=== PATIENT | female | born 1970 | race Caucasian/White ===

== ENCOUNTER 2016-10-25 12:27 | Emergency (ER) | payer OTHER ==
--- NOTE | 2016-10-25 14:03 | DIAGNOSTIC IMAGING REPORT ---
PROCEDURE: XR CHEST 1 VIEW INDICATION: CHEST PAIN TECHNIQUE: Portable AP view (1310 hours). COMPARISON: None. FINDINGS: Allowing for overlying wires and electrodes, lungs are clear. Heart and mediastinum are normal. There are bilateral cervical ribs remnants. There is a pseudoarthrosis of the left first rib (incidental finding). Thorax is normal. IMPRESSION: 1. 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 2. Otherwise negative chest.
--- NOTE | 2016-10-25 14:19 | DIAGNOSTIC IMAGING REPORT ---
PROCEDURE: XR CHEST 1 VIEW INDICATION: Assess nipple shadows. TECHNIQUE: Portable AP view with metal nipple markers (1410 hours). COMPARISON: Compared to chest x-ray earlier in the day (10/25/2016 (1-1 hours). FINDINGS: Confirmation of bilateral nipple shadows. No evidence of lung nodule. Heart and mediastinum are normal. Thorax is normal. IMPRESSION: 1. Confirmation of bilateral nipple shadows. 2. Negative chest.
--- NOTE | 2016-10-25 14:21 | ED ORDER SUMMARY ---
..... Patient: JHON FRAZIER OrderSheet [facility] VisitID: [id number] [address] [place] [address] 45y, F Registration Date/Time: 10/25/2016 ORDER SHEET Weight: 63.5 kg (stated) Allergies: Sulfa Antibiotics GENERAL ORDERS: Chest 1V Urgent (12:49 10/25/2016 Bg SEPULVEDA) (Ack 12:56 Tomasa) (13:21 DDean R.N.) Seam Stay Stitcher (Continuous) (12:49 10/25/2016 Bg SEPULVEDA) (12:50 DDean R.N.) CBC w Diff Urgent (12:49 10/25/2016 Bg SEPULVEDA) (Ack 12:56 Tomasa) (13:21 DDean R.N.) CMP Urgent (12:49 10/25/2016 Bg SEPULVEDA) (Ack 12:56 Tomasa) (13:21 DDean R.N.) UA-Culture if indicated Urgent (12:49 10/25/2016 Bg SEPULVEDA) (Ack 12:56 Tomasa) (13:37 DDean R.N.) PT with INR Urgent (12:49 10/25/2016 Bg SEPULVEDA) (Ack 12:56 Tomasa) (13:21 DDean R.N.) PTT Urgent (12:49 10/25/2016 Bg SEPULVEDA) (Ack 12:56 Tomasa) (13:21 DDean R.N.) Amylase Urgent (12:49 10/25/2016 Bg SEPULVEDA) (Ack 12:56 Tomasa) (13:21 DDean R.N.) Lipase Urgent (12:49 10/25/2016 Bg SEPULVEDA) (Ack 12:56 Tomasa) (13:21 DDean R.N.) CPK Urgent (12:49 10/25/2016 Bg SEPULVEDA) (Ack 12:56 Tomasa) (13:21 DDean R.N.) Troponin-I Urgent (12:49 10/25/2016 Bg SEPULVEDA) (Ack 12:56 Tomasa) (13:21 DDean R.N.) D-Dimer Urgent (12:49 10/25/2016 Bg SEPULVEDA) (Ack 12:56 Tomasa) (13:21 DDean R.N.) BNP Urgent (12:49 10/25/2016 Bg SEPULVEDA) (Ack 12:56 Tomasa) (13:21 DDean R.N.) Oxygen (2 L/min) (NC) (12:49 10/25/2016 Bg SEPULVEDA) (12:50 DDean R.N.) Pulse oximeter (12:49 10/25/2016 Bg SEPULVEDA) (12:50 DDean R.N.) EKG - ER Stat (12:49 10/25/2016 Bg SEPULVEDA) (12:57 Tomasa) Vitals - Orthostatic (12:49 10/25/2016 Bg SEPULVEDA) (12:57 RENEAoerace) TSH Urgent (12:50 10/25/2016 Bg SEPULVEDA) (Ack 12:56 Tomasa) (13:21 DDean R.N.) UA-Culture if indicated Urgent (12:50 10/25/2016 Bg SEPULVEDA) (12:50 Bg SEPULVEDA) (Cancelled: Duplicate Order12:51 Bg SEPULVEDA) Urine Urgent (12:50 10/25/2016 Bg SEPULVEDA) (Ack 12:56 Tomasa) (13:37 DDean R.N.) Urine Drug Screen Urgent (13:24 10/25/2016 Bg SEPULVEDA) (Ack 13:25 Tomasa) (13:37 DDean R.N.) Chest 1V (with nipple markers please) Urgent (13:53 10/25/2016 Bg SEPULVEDA) (Ack 13:56 Tomasa) (14:11 RENEAoemelisa) MEDICATION ORDERS: IV FLUIDS: IV Saline Lock (12:49 10/25/2016 Bg SEPULVEDA) (Ack 12:51 DDean R.N.) (13:38 DDean R.N.) ORDER SHEET NOTES: [Electronically signed by Andrew Vargas MD (14:47 10/25/2016)] [Electronically signed by Denia Hannah R.N. (22:18 10/25/2016)] [Electronically locked/signed by Denia Hannah R.N. (:18 10/25/2016)]
--- NOTE | 2016-10-25 14:21 | ED ORDER SUMMARY ---
..... Patient: JHON FRAZIER OrderSheet [facility] VisitID: [id number] [address] [place] [address] 45y, F Registration Date/Time: 10/25/2016 ORDER SHEET Weight: 63.5 kg (stated) Allergies: Sulfa Antibiotics GENERAL ORDERS: Chest 1V Urgent (12:49 10/25/2016 Bg SEPULVEDA) (Ack 12:56 Tomasa) (13:21 DDean R.N.) Fixed Assets Accountant (Continuous) (12:49 10/25/2016 Bg SEPULVEDA) (12:50 DDean R.N.) CBC w Diff Urgent (12:49 10/25/2016 Bg SEPULVEDA) (Ack 12:56 Tomasa) (13:21 DDean R.N.) CMP Urgent (12:49 10/25/2016 Bg SEPULVEDA) (Ack 12:56 Tomasa) (13:21 DDean R.N.) UA-Culture if indicated Urgent (12:49 10/25/2016 Bg SEPULVEDA) (Ack 12:56 Tomasa) (13:37 DDean R.N.) PT with INR Urgent (12:49 10/25/2016 Bg SEPULVEDA) (Ack 12:56 Tomasa) (13:21 DDean R.N.) PTT Urgent (12:49 10/25/2016 Bg SEPULVEDA) (Ack 12:56 Tomasa) (13:21 DDean R.N.) Amylase Urgent (12:49 10/25/2016 Bg SEPULVEDA) (Ack 12:56 Tomasa) (13:21 DDean R.N.) Lipase Urgent (12:49 10/25/2016 Bg SEPULVEDA) (Ack 12:56 Tomasa) (13:21 DDean R.N.) CPK Urgent (12:49 10/25/2016 Bg SEPULVEDA) (Ack 12:56 Tomasa) (13:21 DDean R.N.) Troponin-I Urgent (12:49 10/25/2016 Bg SEPULVEDA) (Ack 12:56 Tomasa) (13:21 DDean R.N.) D-Dimer Urgent (12:49 10/25/2016 Bg SEPULVEDA) (Ack 12:56 Tomasa) (13:21 DDean R.N.) BNP Urgent (12:49 10/25/2016 Bg SEPULVEDA) (Ack 12:56 Tomasa) (13:21 DDean R.N.) Oxygen (2 L/min) (NC) (12:49 10/25/2016 Bg SEPULVEDA) (12:50 DDean R.N.) Pulse oximeter (12:49 10/25/2016 Bg SEPULVEDA) (12:50 DDean R.N.) EKG - ER Stat (12:49 10/25/2016 Bg SEPULVEDA) (12:57 Tomasa) Vitals - Orthostatic (12:49 10/25/2016 Bg SEPULVEDA) (12:57 RENEAoerace) TSH Urgent (12:50 10/25/2016 Bg SEPULVEDA) (Ack 12:56 Tomasa) (13:21 DDean R.N.) UA-Culture if indicated Urgent (12:50 10/25/2016 Bg SEPULVEDA) (12:50 Bg SEPULVEDA) (Cancelled: Duplicate Order12:51 Bg SEPULVEDA) Urine Urgent (12:50 10/25/2016 Bg SEPULVEDA) (Ack 12:56 Tomasa) (13:37 DDean R.N.) Urine Drug Screen Urgent (13:24 10/25/2016 Bg SEPULVEDA) (Ack 13:25 Tomasa) (13:37 DDean R.N.) Chest 1V (with nipple markers please) Urgent (13:53 10/25/2016 Bg SEPULVEDA) (Ack 13:56 Tomasa) (14:11 RENEAoemelisa) MEDICATION ORDERS: IV FLUIDS: IV Saline Lock (12:49 10/25/2016 Bg SEPULVEDA) (Ack 12:51 DDean R.N.) (13:38 DDean R.N.) ORDER SHEET NOTES: [Electronically signed by Andrew Vargas MD (14:47 10/25/2016)] [Electronically signed by Denia Hannah R.N. (22:18 10/25/2016)] [Electronically locked/signed by Denia Hannah R.N. (:18 10/25/2016)]
--- NOTE | 2016-10-25 14:21 | ED CLINICAL REPORT ---
Clinical Report - Physicians/Mid Levels [facility] [address] [place] [address] 10/25/2016 12:29 Patient: JHON FRAZIER Time Seen: 12:48. Arrived- In handcuffs. Police present. [facility] from [facility]. Historian- patient and police. HISTORY OF PRESENT ILLNESS Chief Complaint: SYNCOPE. The patient has recovered. It was abrupt in onset. This occurred today. Event was not witnessed. At time of event, she had just stood up (she says that she had urinated and had stood to wash her hands). The patient lost consciousness and collapsed. No incontinence. No preceding symptoms of light-headedness, nausea, dim vision, warmth or abdominal pain. Had a single episode. The episode was brief and lasted an unknown duration. No injuries noted. She currently has generalized weakness. No nausea currently. No headache currently. Similar symptoms previously: ( The patient was seen on August 24 of this year at [facility]. She was seen for very similar symptoms. She had had an event of chest pain. [facility] had [facility] and while there had chest pain and was taken to the other hospital. She was released from [facility] status while there to pursue further workup. She has not been in [facility] during the interim. She was arrested yesterday for outstanding warrants. and the officer accompanying her says that she had been in a bathroom for several minutes. When someone went to check on her they found her lying on the floor. They did not hurt any sounds consistent with a fall. They report that the room was too small and not to have struck something when falling. Additionally, they report she was lying on the floor clothed and was alert when they entered the room.). Recent medical care: The patient was seen recently at another facility in the emergency department. REVIEW OF SYSTEMS No chills, fever, sweats, calf pain or cough. No difficulty breathing, pedal edema, palpitations, abdominal pain or constipation. No diarrhea, nausea, vomiting or urinary problems. The patient complains of severe left-sided chest pain (since yesterday), currently moderate, described as radiating to the left arm. She says that she has had a nuclear stress test in the past. All systems otherwise negative, except as recorded above. PAST HISTORY Problems: Heart Disease. Fibromyalgia. Additional Surgeries: Knee Surgery. Medications: Asa 81mg po daily. Allergies: Sulfa Antibiotics. SOCIAL HISTORY Current every day heavy tobacco smoker (cigarette)- less than 1 pack per day. Occasional alcohol use. History of drug use: marijuana. FAMILY HISTORY Denies family medical history. ADDITIONAL NOTES The nursing notes have been reviewed. PHYSICAL EXAM Vital Signs: 10/25/2016 12:35 BP: 116/77. HR: 86. RR: 18. O2 saturation: 100%. Temp: 98.9 F. Pain level now: 12/19. Have been reviewed. Appearance: Alert. Eyes: Pupils equal, round and reactive to light. No nystagmus. ENT: Normal ENT inspection. Pharynx normal. Neck: Normal inspection. Neck supple. No meningeal signs or carotid bruit. CVS: Normal heart rate and rhythm. Heart sounds normal. Respiratory: Breath sounds normal. Abdomen: Soft and nontender. No organomegaly. Back: Abnormal inspection. Skin: Skin warm and dry. Normal skin color. Normal skin turgor. Extremities: Extremities exhibit normal ROM. No calf tenderness. No lower extremity edema. Neuro: Alert. Speech normal. No cerebellar findings. No motor deficit. No sensory deficit. LABS, X-RAYS, AND EKG EKG: Rate: 81. LBBB. EKG unchanged when compared with prior EKG. (24 Aug 2016 from [place]). The study has been independently viewed by me. Chest X-ray: (right basilar nodular lesion and left lingular nodular lesion - likely nipples. We'll repeat study with markers). The X-rays were independently viewed by me. Chest X-ray #2: (Nodular densities previously noted different position and correspond to placed nipple markers). The X-rays were independently viewed by me. Laboratory Tests: Urine: (ROCCO: 10/25/2016 13:25) ( MsgRcvd 10/25/2016 13:45) Final results Test Result Flag Units (Reference) URINE NEGATIVE CBC w Diff: (ROCCO: 10/25/2016 12:15) ( MsgRcvd 10/25/2016 13:13) Final results Test Result Flag Units (Reference) WHITE BLOOD COUNT 6.6 K/uL (4.5-11.5) RED BLOOD COUNT 4.45 M/uL (4.00-5.20) HEMOGLOBIN 13.7 gm/dL (12.0-16.0) HEMATOCRIT 40.8 % (36.0-46.0) MEAN CELL VOLUME 92 fL (80-100) MEAN CORPUSCULAR HGB 31 pg (26-34) MEAN CORPUSCULAR HGB CONC 34 g/dL (31-37) RED CELL DISTRIBUTION WIDTH 12.5 % (11.6-14.8) PLATELET COUNT 289 K/uL (150-400) NEUTROPHIL % 62.3 % (50-75) LYMPH % 26.7 % (25-40) MONO % 7.7 % (3-14) EOSINOPHIL % 3.0 % (0-4) BASOPHIL % 0.3 % (0-2) PT with INR: (ROCCO: 10/25/2016 12:15) ( MsgRcvd 10/25/2016 13:25) Final results Test Result Flag Units (Reference) INR 0.9 (0.8-1.2) Low Intensity Therapy: INR 1.5-2.0 PT range 18.5-23.1Mod.Intensity Therapy: INR 2.0-3.0 PT range 23.1-31.5High Intensity Therapy: INR 2.5-3.5 PT range 27.4-35.5High Intensity Therapy 2: INR 3.0-4.0 PT range 31.5-39.3 APTT 28 SECONDS (24-34) D-DIMER QUANTITATIVE < 0.27 L ug/mLFEU (0.27-0.52) The primary value of this quantitative assay relates toits negative predictive value (i.e. exclusion) of pulmonaryembolism/deep vein thrombosis/DIC.Elevated levels of d-dimer may also occur with:, age, cancer, inflammation, liver disease,post-op, infection, hematoma, coronary disease, peripheralarteriopathy, bleeding disorders and thrombolytic treatment.Results should be correlated with other clinical andradiological data.Testing Methodology: Latex Immunoassay Urine Drug Screen: (ROCCO: 10/25/2016 13:25) ( [facility] 10/25/2016 14:04) Final results Test Result Flag Units (Reference) AMPHETAMINE/METHAMPHETAMINE POSITIVE H (NEGATIVE) BARBITURATE NEGATIVE (NEGATIVE) BENZODIAZEPINE NEGATIVE (NEGATIVE) CANNABINOID POSITIVE H (NEGATIVE) COCAINE NEGATIVE (NEGATIVE) ECSTASY NEGATIVE (NEGATIVE) METHADONE NEGATIVE (NEGATIVE) OPIATE NEGATIVE (NEGATIVE) The urine drug screen is a qualitative screening test fordrug overdose and abuse. All screen results should beconsidered as presumptive.Drugs screened for are as follows:BenzodiazepinesCocaineAmphetamines/MetamphetaminesTHC (Tetrahydrocannabinol)OpiatesBarbituratesEcstasyMethadonePositive results are unconfirmed. For confirmation, notifythe lab for the specimen to be sent to the reference lab.All confirmations must be performed by a differentmethodology.The ingestion of natural herbal and plant productscontaining Ephedra/Ephedra metabolites can produce in urineone or more substances capable of cross reacting withamphetamine/methamphetamine immunoassays. These testsprovide a preliminary result only. A more specificalternative chemical method must be used to obtain aconfirmed analytical result. BNP: (ROCCO: 10/25/2016 12:15) ( [facility] 10/25[facility] 13[facility]36) Final results Test Result Flag Units (Reference) B-TYPE NATRIURETIC PEPTIDE 21.3 pg/ml (5-100) CMP: (ROCCO: 10/25/2016 12:15) ( [facility] 10/25/2016 13:35) Final results Test Result Flag Units (Reference) GLUCOSE 113 H mg/dL (70-110) BUN 19 H mg/dL (7-18) CREATININE 0.9 mg/dL (0.6-1.3) Estimated GFR >60 mL/min Estimated GFR- >60 mL/min Note: Persistent reduction over 3 months in eGFR<60 mL/min/1.73 m2 defines CKD. Patients with eGFR values>=60 mL/min/1.73 m2 may also have CKD if evidence ofpersistent proteinuria. Additional information may be foundat www.kidney.org. SODIUM 144 mmol/L (136-145) POTASSIUM 4.2 mmol/L (3.5-5.1) CHLORIDE 106 mmol/L (98-107) CARBON DIOXIDE 29 mmol/L (21-32) CALCIUM 8.8 mg/dL (8.5-10.1) TOTAL PROTEIN 7.2 g/dL (6.4-8.2) ALBUMIN 3.5 g/dL (3.3-5.0) BILIRUBIN, TOTAL 0.4 mg/dL (0.0-1.0) ALKALINE PHOSPHATASE 59 U/L (46-116) AST (SGOT) 19 U/L (15-37) ALT (SGPT) 31 U/L (12-78) LIPASE 426 H U/L (73-393) AMYLASE 91 U/L (25-115) CPK 115 U/L (24-260) TROPONIN I <0.05 L ng/mL (0.00-1.5) TROPONIN REFERENCE RANGE:<0.1 NEGATIVE0.1-1.5 INDETERMINANT>1.5 POSITIVE THYROID STIMULATING HORMONE 0.608 uIU/mL (0.34-3.74) . PROGRESS AND PROCEDURES Course of Care: Patient is stable. Patient/family counseled. Old medical records reviewed. Differential Diagnosis: I considered situational stimulus, micturition, cardiac sinus hypersensitivity, arrhythmia, heart block, myocardial infarction, aortic dissection, seizure and hysteria as a possible cause of syncope in this patient. This is a partial list of diagnoses considered. I considered muscle strain, costochondritis, myocardial infarction, angina, pericarditis, palpitations, pulmonary embolism, gastroesophageal reflux disease, esophagitis and esophageal spasm as a possible cause of chest pain in this patient. This is a partial list of diagnoses considered. Other possible considerations: evaluation in the emergency Department today included an EKG which demonstrates an old left bundle-branch block. given her unremarkable follow-up chest x-ray, negative troponin after greater than 6 hours following the onset of her chest pain and a reassuring d-dimer, The patient can be safely discharged back to police custody. Differential diagnosis was discussed with patient. Disposition: [facility]. Condition: stable. CLINICAL IMPRESSION Syncope of unknown cause. Substance abuse- marijuana, methamphetamines. INSTRUCTIONS Rest. Do not smoke- benefits of smoking cessation discussed (>3 -10 minutes). Seek medical help to quit smoking. (seek assistance for help with your substance abuse issues. Please consult the list which you were provided and contact these organizations for further help.). Warnings: Further evaluation is necessary. GENERAL WARNINGS: Return or contact your physician immediately if your condition worsens or changes unexpectedly, if not improving as expected, or if other problems arise. Follow-up: Follow up with your doctor. Call for the next available appointment. Follow up with a roller repairer- as recommended by your primary care physician. Understanding of the discharge instructions verbalized by patient. (Electronically signed by Andrew Vargas MD 10/25/2016 14:47)
--- NOTE | 2016-10-25 14:21 | ED NURSING NOTES ---
Clinical Report - Nurses [facility] [address] [place] [address] 10/25/2016 12:29 Patient: JHON FRAZIER TRIAGE Triage time 1235. Acuity: LEVEL 3. Chief Complaint: CHEST PAIN and (midsternal/let sided chest pain since yesterday morning. brought in by PD from [facility] 12:35. --12:47 Denia Hannah R.N. 12:35 10/25/16. BP: 116/77. HR: 86. RR: 18. O2 saturation: 100%. Temp: 98.9 F. Pain level now: 12/19. --12:47 Denia Hannah R.N. Weight: 63.5 kg stated. Height/Length: 64 inches Per Patient. BMI: 24. --12:45 Denia Hannah R.N. Medications Asa 81mg po daily. --12:45 Denia Hannah R.N. Allergies Sulfa Antibiotics. --12:45 Denia Hannah R.N. History Historian: patient. Arrived in police custody and accompanied by police. No primary care physician. This started yesterday. ( c/o dizziness and "like I just want to sleep"). No difficulty breathing, sweating episodes, nausea or vomiting. PAST MEDICAL HX: ( seasonal allergies hypoglycemia). SURGERY HX: Right and left knee surgery. SOCIAL HX: Heavy tobacco smoker (cigarette)- less than 1 pack per day. Occasional alcohol use. History of drug use: marijuana. --12:47 Denia Hannah R.N. PROBLEMS: Heart Disease. Fibromyalgia. --12:46 Denia Hannah R.N. Interventions ID band on patient. To treatment room. --12:47 Denia Hannah R.N. PHYSICAL ASSESSMENT 12:50. Ambulatory to room. Patient gowned. GENERAL / NEURO / PSYCH: Alert. Oriented X 4. Appears in no acute distress. Appears anxious. RESPIRATORY: Respirations not labored. Chest wall tenderness. CVS: Pulses within normal limits. Capillary refill less than 2 seconds. GI / : Abdomen soft. EXTREMITIES: No lower extremity edema. SKIN: Skin is warm and dry. Skin is non-tender. --12:50 Denia Hannah R.N. NURSING PROGRESS NOTES 12:35. Monitoring of patient in place; (NSR). Patient gowned. Reassurance given. Patient identifiers checked. Call light placed in reach. Side rails up. Bed placed in lowest position. Patient ready for evaluation- chart flagged. --12:48 Denia Hannah R.N. 12:50. EKG time: (1250). EKG was ordered, performed by a tech and shown to the ED physician. by ZULLY Mayorga Tech. --12:49 Denia Hannah R.N. 13:07 10/25/16. BP: 109/67 taken while lying. HR: 76. O2 saturation: 97%. --13:08 Crystal Kim ER Tech1 13:08 10/25/16. BP: 124/72 taken while sitting. HR: 92. O2 saturation: 99%. --13:08 Crystal Kim ER Tech1 13:09 10/25/16. BP: 112/78 taken while standing. HR: 92. O2 saturation: 100%. --13:09 Crystal Kim ER Tech1 13:15. Portable chest x-ray ordered, performed and shown to the ED physician. --13:19 Denia Hannah R.N. 12:50 10/25/2016 Site #1 started via IV in the left antecubital space with an 20g angiocath, with aseptic technique and good blood return; one attempt. Blood drawn: rainbow set. Labeled in the presence of the patient and sent to the lab. Saline lock flushed with 10 mL saline. --13:22 Denia Hannah R.N. 13:30. ( ambulated pt in [place], steady on feet. UA obtained and sent to lab). --13:36 Denia Hannah R.N. 13:40 10/25/16. BP: 118/77. HR: 85. RR: 18. O2 saturation: 98%. Temp: deferred. Pain level now: 12/19. Additional comments: pt laying on bed with eyes closed, deputy juvenile officer in room . --14:12 Denia Hannah R.N. 14:05. Portable chest x-ray ordered, performed and shown to the ED physician (repeat CXR done). --14:13 Denia Hannah R.N. 14:10 10/25/16. BP: 119/72. HR: 77. RR: 15. O2 saturation: 100%. Temp: deferred. Pain level now: 12/19. --14:13 Denia Hannah R.N. DISPOSITION / DISCHARGE 14:20. Condition at departure: stable. No learning barriers present. Discharge instructions provided and reviewed (police). Reviewed referrals (drug and alcohol rehab info given to pt). Patient verbalized understanding. Written instructions provided in [place]. The patient was discharged to police department facility and accompanied by a police escort. She left the Emergency Department ambulatory and via police department vehicle. --22:17 Denia Hannah R.N. 14:20 10/25/16. BP: 116/68. HR: 76. RR: 16. O2 saturation: 99%. Temp: deferred. Pain level now: 12/19. --22:17 Denia Hannah R.N. Locked/Released at 10/25/2016 22:18 by Denia Hannah R.N.
--- NOTE | 2016-10-25 14:21 | ED NURSING NOTES ---
Clinical Report - Nurses [facility] [address] [place] [address] 10/25/2016 12:29 Patient: JHON FRAZIER TRIAGE Triage time 1235. Acuity: LEVEL 3. Chief Complaint: CHEST PAIN and (midsternal/let sided chest pain since yesterday morning. brought in by PD from [facility] 12:35. --12:47 Denia Hannah R.N. 12:35 10/25/16. BP: 116/77. HR: 86. RR: 18. O2 saturation: 100%. Temp: 98.9 F. Pain level now: 12/19. --12:47 Denia Hannah R.N. Weight: 63.5 kg stated. Height/Length: 64 inches Per Patient. BMI: 24. --12:45 Denia Hannah R.N. Medications Asa 81mg po daily. --12:45 Denia Hannah R.N. Allergies Sulfa Antibiotics. --12:45 Denia Hannah R.N. History Historian: patient. Arrived in police custody and accompanied by police. No primary care physician. This started yesterday. ( c/o dizziness and "like I just want to sleep"). No difficulty breathing, sweating episodes, nausea or vomiting. PAST MEDICAL HX: ( seasonal allergies hypoglycemia). SURGERY HX: Right and left knee surgery. SOCIAL HX: Heavy tobacco smoker (cigarette)- less than 1 pack per day. Occasional alcohol use. History of drug use: marijuana. --12:47 Denia Hannah R.N. PROBLEMS: Heart Disease. Fibromyalgia. --12:46 Denia Hannah R.N. Interventions ID band on patient. To treatment room. --12:47 Denia Hannah R.N. PHYSICAL ASSESSMENT 12:50. Ambulatory to room. Patient gowned. GENERAL / NEURO / PSYCH: Alert. Oriented X 4. Appears in no acute distress. Appears anxious. RESPIRATORY: Respirations not labored. Chest wall tenderness. CVS: Pulses within normal limits. Capillary refill less than 2 seconds. GI / : Abdomen soft. EXTREMITIES: No lower extremity edema. SKIN: Skin is warm and dry. Skin is non-tender. --12:50 Denia Hannah R.N. NURSING PROGRESS NOTES 12:35. Monitoring of patient in place; (NSR). Patient gowned. Reassurance given. Patient identifiers checked. Call light placed in reach. Side rails up. Bed placed in lowest position. Patient ready for evaluation- chart flagged. --12:48 Denia Hannah R.N. 12:50. EKG time: (1250). EKG was ordered, performed by a tech and shown to the ED physician. by ZULLY Mayorga Tech. --12:49 Denia Hannah R.N. 13:07 10/25/16. BP: 109/67 taken while lying. HR: 76. O2 saturation: 97%. --13:08 Crystal Kim ER Tech1 13:08 10/25/16. BP: 124/72 taken while sitting. HR: 92. O2 saturation: 99%. --13:08 Crystal Kim ER Tech1 13:09 10/25/16. BP: 112/78 taken while standing. HR: 92. O2 saturation: 100%. --13:09 Crystal Kim ER Tech1 13:15. Portable chest x-ray ordered, performed and shown to the ED physician. --13:19 Denia Hannah R.N. 12:50 10/25/2016 Site #1 started via IV in the left antecubital space with an 20g angiocath, with aseptic technique and good blood return; one attempt. Blood drawn: rainbow set. Labeled in the presence of the patient and sent to the lab. Saline lock flushed with 10 mL saline. --13:22 Denia Hannah R.N. 13:30. ( ambulated pt in [place], steady on feet. UA obtained and sent to lab). --13:36 Denia Hannah R.N. 13:40 10/25/16. BP: 118/77. HR: 85. RR: 18. O2 saturation: 98%. Temp: deferred. Pain level now: 12/19. Additional comments: pt laying on bed with eyes closed, strategic debriefing officer in room . --14:12 Denia Hannah R.N. 14:05. Portable chest x-ray ordered, performed and shown to the ED physician (repeat CXR done). --14:13 Denia Hannah R.N. 14:10 10/25/16. BP: 119/72. HR: 77. RR: 15. O2 saturation: 100%. Temp: deferred. Pain level now: 12/19. --14:13 Denia Hannah R.N. DISPOSITION / DISCHARGE 14:20. Condition at departure: stable. No learning barriers present. Discharge instructions provided and reviewed (police). Reviewed referrals (drug and alcohol rehab info given to pt). Patient verbalized understanding. Written instructions provided in Occitan. The patient was discharged to police department facility and accompanied by a police escort. She left the Emergency Department ambulatory and via police department vehicle. --22:17 Denia Hannah R.N. 14:20 10/25/16. BP: 116/68. HR: 76. RR: 16. O2 saturation: 99%. Temp: deferred. Pain level now: 12/19. --22:17 Denia Hannah R.N. Locked/Released at 10/25/2016 22:18 by Denia Hannah R.N.
--- NOTE | 2016-10-25 14:21 | ED CLINICAL REPORT ---
Clinical Report - Physicians/Mid Levels [facility] [address] [place] [address] 10/25/2016 12:29 Patient: JHON FRAZIER Time Seen: 12:48. Arrived- In handcuffs. Police present. Came from [facility]. Historian- patient and police. HISTORY OF PRESENT ILLNESS Chief Complaint: SYNCOPE. The patient has recovered. It was abrupt in onset. This occurred today. Event was not witnessed. At time of event, she had just stood up (she says that she had urinated and had stood to wash her hands). The patient lost consciousness and collapsed. No incontinence. No preceding symptoms of light-headedness, nausea, dim vision, warmth or abdominal pain. Had a single episode. The episode was brief and lasted an unknown duration. No injuries noted. She currently has generalized weakness. No nausea currently. No headache currently. Similar symptoms previously: ( The patient was seen on August 24 of this year at [facility]. She was seen for very similar symptoms. She had had an event of chest pain. She had been taken to [facility] and while there had chest pain and was taken to the other hospital. She was released from [facility] status while there to pursue further workup. She has not been in [facility] during the interim. She was arrested yesterday for outstanding warrants. and the officer accompanying her says that she had been in a bathroom for several minutes. When someone went to check on her they found her lying on the floor. They did not hurt any sounds consistent with a fall. They report that the room was too small and not to have struck something when falling. Additionally, they report she was lying on the floor clothed and was alert when they entered the room.). Recent medical care: The patient was seen recently at another facility in the emergency department. REVIEW OF SYSTEMS No chills, fever, sweats, calf pain or cough. No difficulty breathing, pedal edema, palpitations, abdominal pain or constipation. No diarrhea, nausea, vomiting or urinary problems. The patient complains of severe left-sided chest pain (since yesterday), currently moderate, described as radiating to the left arm. She says that she has had a nuclear stress test in the past. All systems otherwise negative, except as recorded above. PAST HISTORY Problems: Heart Disease. Fibromyalgia. Additional Surgeries: Knee Surgery. Medications: Asa 81mg po daily. Allergies: Sulfa Antibiotics. SOCIAL HISTORY Current every day heavy tobacco smoker (cigarette)- less than 1 pack per day. Occasional alcohol use. History of drug use: marijuana. FAMILY HISTORY Denies family medical history. ADDITIONAL NOTES The nursing notes have been reviewed. PHYSICAL EXAM Vital Signs: 10/25/2016 12:35 BP: 116/77. HR: 86. RR: 18. O2 saturation: 100%. Temp: 98.9 F. Pain level now: 12/19. Have been reviewed. Appearance: Alert. Eyes: Pupils equal, round and reactive to light. No nystagmus. ENT: Normal ENT inspection. Pharynx normal. Neck: Normal inspection. Neck supple. No meningeal signs or carotid bruit. CVS: Normal heart rate and rhythm. Heart sounds normal. Respiratory: Breath sounds normal. Abdomen: Soft and nontender. No organomegaly. Back: Abnormal inspection. Skin: Skin warm and dry. Normal skin color. Normal skin turgor. Extremities: Extremities exhibit normal ROM. No calf tenderness. No lower extremity edema. Neuro: Alert. Speech normal. No cerebellar findings. No motor deficit. No sensory deficit. LABS, X-RAYS, AND EKG EKG: Rate: 81. LBBB. EKG unchanged when compared with prior EKG. (24 Aug 2016 from [place]). The study has been independently viewed by me. Chest X-ray: (right basilar nodular lesion and left lingular nodular lesion - likely nipples. We'll repeat study with markers). The X-rays were independently viewed by me. Chest X-ray #2: (Nodular densities previously noted different position and correspond to placed nipple markers). The X-rays were independently viewed by me. Laboratory Tests: Urine: (ROCCO: 10/25/2016 13:25) ( MsgRcvd 10/25/2016 13:45) Final results Test Result Flag Units (Reference) URINE NEGATIVE CBC w Diff: (ROCCO: 10/25/2016 12:15) ( MsgRcvd 10/25/2016 13:13) Final results Test Result Flag Units (Reference) WHITE BLOOD COUNT 6.6 K/uL (4.5-11.5) RED BLOOD COUNT 4.45 M/uL (4.00-5.20) HEMOGLOBIN 13.7 gm/dL (12.0-16.0) HEMATOCRIT 40.8 % (36.0-46.0) MEAN CELL VOLUME 92 fL (80-100) MEAN CORPUSCULAR HGB 31 pg (26-34) MEAN CORPUSCULAR HGB CONC 34 g/dL (31-37) RED CELL DISTRIBUTION WIDTH 12.5 % (11.6-14.8) PLATELET COUNT 289 K/uL (150-400) NEUTROPHIL % 62.3 % (50-75) LYMPH % 26.7 % (25-40) MONO % 7.7 % (3-14) EOSINOPHIL % 3.0 % (0-4) BASOPHIL % 0.3 % (0-2) PT with INR: (ROCCO: 10/25/2016 12:15) ( MsgRcvd 10/25/2016 13:25) Final results Test Result Flag Units (Reference) INR 0.9 (0.8-1.2) Low Intensity Therapy: INR 1.5-2.0 PT range 18.5-23.1Mod.Intensity Therapy: INR 2.0-3.0 PT range 23.1-31.5High Intensity Therapy: INR 2.5-3.5 PT range 27.4-35.5High Intensity Therapy 2: INR 3.0-4.0 PT range 31.5-39.3 APTT 28 SECONDS (24-34) D-DIMER QUANTITATIVE < 0.27 L ug/mLFEU (0.27-0.52) The primary value of this quantitative assay relates toits negative predictive value (i.e. exclusion) of pulmonaryembolism/deep vein thrombosis/DIC.Elevated levels of d-dimer may also occur with:, age, cancer, inflammation, liver disease,post-op, infection, hematoma, coronary disease, peripheralarteriopathy, bleeding disorders and thrombolytic treatment.Results should be correlated with other clinical andradiological data.Testing Methodology: Latex Immunoassay Urine Drug Screen: (ROCCO: 10/25/2016 13:25) ( [facility] 10/25/2016 14:04) Final results Test Result Flag Units (Reference) AMPHETAMINE/METHAMPHETAMINE POSITIVE H (NEGATIVE) BARBITURATE NEGATIVE (NEGATIVE) BENZODIAZEPINE NEGATIVE (NEGATIVE) CANNABINOID POSITIVE H (NEGATIVE) COCAINE NEGATIVE (NEGATIVE) ECSTASY NEGATIVE (NEGATIVE) METHADONE NEGATIVE (NEGATIVE) OPIATE NEGATIVE (NEGATIVE) The urine drug screen is a qualitative screening test fordrug overdose and abuse. All screen results should beconsidered as presumptive.Drugs screened for are as follows:BenzodiazepinesCocaineAmphetamines/MetamphetaminesTHC (Tetrahydrocannabinol)OpiatesBarbituratesEcstasyMethadonePositive results are unconfirmed. For confirmation, notifythe lab for the specimen to be sent to the reference lab.All confirmations must be performed by a differentmethodology.The ingestion of natural herbal and plant productscontaining Ephedra/Ephedra metabolites can produce in urineone or more substances capable of cross reacting withamphetamine/methamphetamine immunoassays. These testsprovide a preliminary result only. A more specificalternative chemical method must be used to obtain aconfirmed analytical result. BNP: (ROCCO: 10/25/2016 12:15) ( [facility] 10/25/2016 13:36) Final results Test Result Flag Units (Reference) B-TYPE NATRIURETIC PEPTIDE 21.3 pg/ml (5-100) CMP: (ROCCO: 10/25/2016 12:15) ( [facility] 10/25/2016 13:35) Final results Test Result Flag Units (Reference) GLUCOSE 113 H mg/dL (70-110) BUN 19 H mg/dL (7-18) CREATININE 0.9 mg/dL (0.6-1.3) Estimated GFR >60 mL/min Estimated GFR- >60 mL/min Note: Persistent reduction over 3 months in eGFR<60 mL/min/1.73 m2 defines CKD. Patients with eGFR values>=60 mL/min/1.73 m2 may also have CKD if evidence ofpersistent proteinuria. Additional information may be foundat www.kidney.org. SODIUM 144 mmol/L (136-145) POTASSIUM 4.2 mmol/L (3.5-5.1) CHLORIDE 106 mmol/L (98-107) CARBON DIOXIDE 29 mmol/L (21-32) CALCIUM 8.8 mg/dL (8.5-10.1) TOTAL PROTEIN 7.2 g/dL (6.4-8.2) ALBUMIN 3.5 g/dL (3.3-5.0) BILIRUBIN, TOTAL 0.4 mg/dL (0.0-1.0) ALKALINE PHOSPHATASE 59 U/L (46-116) AST (SGOT) 19 U/L (15-37) ALT (SGPT) 31 U/L (12-78) LIPASE 426 H U/L (73-393) AMYLASE 91 U/L (25-115) CPK 115 U/L (24-260) TROPONIN I <0.05 L ng/mL (0.00-1.5) TROPONIN REFERENCE RANGE:<0.1 NEGATIVE0.1-1.5 INDETERMINANT>1.5 POSITIVE THYROID STIMULATING HORMONE 0.608 uIU/mL (0.34-3.74) . PROGRESS AND PROCEDURES Course of Care: Patient is stable. Patient/family counseled. Old medical records reviewed. Differential Diagnosis: I considered situational stimulus, micturition, cardiac sinus hypersensitivity, arrhythmia, heart block, myocardial infarction, aortic dissection, seizure and hysteria as a possible cause of syncope in this patient. This is a partial list of diagnoses considered. I considered muscle strain, costochondritis, myocardial infarction, angina, pericarditis, palpitations, pulmonary embolism, gastroesophageal reflux disease, esophagitis and esophageal spasm as a possible cause of chest pain in this patient. This is a partial list of diagnoses considered. Other possible considerations: evaluation in the emergency Department today included an EKG which demonstrates an old left bundle-branch block. given her unremarkable follow-up chest x-ray, negative troponin after greater than 6 hours following the onset of her chest pain and a reassuring d-dimer, The patient can be safely discharged back to police custody. Differential diagnosis was discussed with patient. Disposition: Discharged to [facility]. Condition: stable. CLINICAL IMPRESSION Syncope of unknown cause. Substance abuse- marijuana, methamphetamines. INSTRUCTIONS Rest. Do not smoke- benefits of smoking cessation discussed (>3 -10 minutes). Seek medical help to quit smoking. (seek assistance for help with your substance abuse issues. Please consult the list which you were provided and contact these organizations for further help.). Warnings: Further evaluation is necessary. GENERAL WARNINGS: Return or contact your physician immediately if your condition worsens or changes unexpectedly, if not improving as expected, or if other problems arise. Follow-up: Follow up with your doctor. Call for the next available appointment. Follow up with a poiser- as recommended by your primary care physician. Understanding of the discharge instructions verbalized by patient. (Electronically signed by Andrew Vargas MD 10/25/2016 14:47)
--- NOTE | 2016-10-25 22:18 | ED MED RECONCILIATION SUMMARY ---
Patient: JHON FRAZIER Medication Reconciliation Report [facility] VisitID: [id number] [address] [place] [address] 45y, F Registration Date/Time: 10/25/2016 Weight: 63.5 kg Height/Length: 64 in. BMI: 24.0 ALLERGIES: Sulfa Antibiotics The patient's Home Medications are listed below: THE FOLLOWING MEDICATIONS NEED TO BE RECONCILED: Asa 81mg po daily The source(s) of the original Home Medication information: Not obtained. The following Medications were given to the patient in the Emergency Department: None. The following Medications were prescribed to the patient: None.
--- NOTE | 2016-10-25 22:18 | ED DISCHARGE INSTRUCTIONS ---
Patient: JHON FRAZIER General Instructions [facility] VisitID: [id number] [place] [address] 45y, F Registration Date/Time: 10/25/2016 Syncope of unknown cause. Substance abuse- marijuana, methamphetamines. INSTRUCTIONS Rest. Do not smoke- benefits of smoking cessation discussed (>3 -10 minutes). Seek medical help to quit smoking. (seek assistance for help with your substance abuse issues. Please consult the list which you were provided and contact these organizations for further help.). Warnings: Further evaluation is necessary. GENERAL WARNINGS: Return or contact your physician immediately if your condition worsens or changes unexpectedly, if not improving as expected, or if other problems arise. Follow-up: Follow up with your doctor. Call for the next available appointment. Follow up with a computer help desk specialist- as recommended by your primary care physician. Understanding of the discharge instructions verbalized by patient. ADDITIONAL INFORMATION Fainting:Uncertain Cause Fainting (syncope) is a temporary loss of consciousness ("passing out"). It occurs when blood flow to the brain is reduced. Near-fainting ("near-syncope") is very similar to fainting, but you do not fully "pass out". The common minor causes of fainting include: sudden fear, pain, nausea, emotional stress and overexertion. Suddenly standing up after sitting or lying for a long time can also cause fainting. The more serious causes for fainting are due to either a very slow or very fast or very slow heart beat ("arrhythmia"), other types of heart disease, dehydration, blood loss, seizure, stroke or ruptured blood vessel in the brain. Taking too much high blood pressure medicine can also cause low blood pressure and fainting. The exact cause of your episode is not certain. However, the tests today did not show any of the serious causes of fainting. Sometimes further testing is needed to find out if a serious problem exists. Therefore, it is important that you follow-up with your doctor as advised. Home Care: 1) Rest today. You may resume your normal activities when you are feeling back to normal. It is best to remain with someone who can check on you for the next 24 hours to watch for another episode of fainting. 2) If you become light-headed or dizzy, lie down immediately or sit with your head between your knees. 3) Because we do not know the exact cause of your near fainting spell, it is possible for another spell to occur without warning. Therefore, do not drive a car or operate dangerous equipment, do not take a bath alone (use a shower instead) and do not swim alone until your doctor says that you are no longer in danger of having another fainting spell. Follow Up with your doctor as advised. Get Prompt Medical Attention if any of the following occur: -- Another fainting spell occurs, which is not explained by the common causes listed above -- Chest, arm, neck, jaw, back or abdominal pain -- Shortness of breath -- Severe headache or seizure -- Blood in vomit, stools (black or red color) -- Unexpected vaginal bleeding -- Palpitations (very rapid or very slow or irregular heart beat) -- Signs of stroke: Weakness of an arm or leg or one side of the face Difficulty with speech or vision Extreme drowsiness, confusion, dizziness or fainting How To Quit Smoking Smoking is one of the hardest habits to break. About half of all those who have ever smoked have been able to quit, and most of those (about 70%) who still smoke want to quit. Here are some of the best ways to stop smoking. Keep Trying: It takes most smokers about 8 tries before they are finally able to fully quit. So, the more often you try and fail, the better your chance of quitting the next time! So, don't give up! Go Cold [place]: Most ex-smokers quit cold turkey. Trying to cut back gradually doesn't seem to work as well, perhaps because it continues the smoking habit. Also, it is possible to fool yourself by inhaling more while smoking fewer cigarettes. This results in the same amount of nicotine in your body! Get Support: Support programs can make an important difference, especially for the heavy smoker. These groups offer lectures, methods to change your behavior and peer support. Call the free national Quitline for more information. 592-GQQR-IEI (463-994-6924). Low-cost or free programs are offered by many hospitals, local chapters of the [place] [employer] (896-680-0292) and the [place] Cancer Society (258-832-5932). Support at home is important too. Non-smokers can help by offering praise and encouragement. If the smoker fails to quit, encourage them to try again! Ulze-Bdz-Gmzjhcu Medicines: For those who can't quit on their own, Nicotine Replacement Therapy (NRT) may make quitting much easier. Certain aids such as the nicotine patch, gum and lozenge are available without a prescription. However, it is best to use these under the guidance of your doctor. The skin patch provides a steady supply of nicotine to the body. Nicotine gum and lozenge gives temporary bursts of low levels of nicotine. Both methods take the edge off the craving for cigarettes. WARNING: If you feel symptoms of nicotine overdose, such as nausea, vomiting, dizziness, weakness, or fast heartbeat, stop using these and see your doctor. Prescription Medicines: After evaluating your smoking patterns and prior attempts at quitting, your doctor may offer a prescription medicine such as bupropion (Zyban, Wellbutrin), varenicline (Chantix, Champix), a niocotine inhaler or nasal spray. Each has its unique advantage and side effects which your doctor can review with you. Health Benefits Of Quitting: The benefits of quitting start right away and keep improving the longer you go without smokin minutes: blood pressure and pulse return to normal 8 hours: oxygen levels return to normal 2 days: ability to smell and taste begins to improve as damaged nerves start to regrow 2-3 weeks: circulation and lung function improves 1-9 months: decreased cough, congestion and shortness of breath; less tired 1 year: risk of heart attack decreases by half 5 years: risk of lung cancer decreases by half; risk of stroke becomes the same as a non-smoker For information about how to quit smoking, visit the following links: National Cancer [place] , Clearing the Air, Quit Smoking Today - an online booklet. http://www.smokefree.gov/pubs/clearing_the_air.pdf Smokefree.gov http://smokefree.gov/ QuitNet http://www.quitnet.com/ You have been given the following additional information: Syncope, Unk Cause Smoking Cessation Rest. (Electronically signed by Andrew Vargas MD 10/25/2016 14:47)
--- NOTE | 2016-10-25 22:18 | ED MAR SUMMARY ---
..... Medication Administration Record [facility] [address] [place], [place] [id number] Patient: JHON FRAZIER Visit ID: [id number] 45y, F Weight: 63.5 kg Height/Length: 64 in BMI: 24 ALLERGIES: Sulfa Antibiotics
--- NOTE | 2016-10-25 22:18 | ED MAR SUMMARY ---
..... Medication Administration Record [facility] [address] [place], [place] [id number] Patient: JHON FRAZIER Visit ID: [id number] 45y, F Weight: 63.5 kg Height/Length: 64 in BMI: 24 ALLERGIES: Sulfa Antibiotics
--- NOTE | 2016-10-25 22:18 | ED DISCHARGE INSTRUCTIONS ---
Patient: JHON FRAZIER General Instructions [facility] VisitID: [id number] [place] [address] 45y, F Registration Date/Time: 10/25/2016 Syncope of unknown cause. Substance abuse- marijuana, methamphetamines. INSTRUCTIONS Rest. Do not smoke- benefits of smoking cessation discussed (>3 -10 minutes). Seek medical help to quit smoking. (seek assistance for help with your substance abuse issues. Please consult the list which you were provided and contact these organizations for further help.). Warnings: Further evaluation is necessary. GENERAL WARNINGS: Return or contact your physician immediately if your condition worsens or changes unexpectedly, if not improving as expected, or if other problems arise. Follow-up: Follow up with your doctor. Call for the next available appointment. Follow up with a demurrage agent- as recommended by your primary care physician. Understanding of the discharge instructions verbalized by patient. ADDITIONAL INFORMATION Fainting:Uncertain Cause Fainting (syncope) is a temporary loss of consciousness ("passing out"). It occurs when blood flow to the brain is reduced. Near-fainting ("near-syncope") is very similar to fainting, but you do not fully "pass out". The common minor causes of fainting include: sudden fear, pain, nausea, emotional stress and overexertion. Suddenly standing up after sitting or lying for a long time can also cause fainting. The more serious causes for fainting are due to either a very slow or very fast or very slow heart beat ("arrhythmia"), other types of heart disease, dehydration, blood loss, seizure, stroke or ruptured blood vessel in the brain. Taking too much high blood pressure medicine can also cause low blood pressure and fainting. The exact cause of your episode is not certain. However, the tests today did not show any of the serious causes of fainting. Sometimes further testing is needed to find out if a serious problem exists. Therefore, it is important that you follow-up with your doctor as advised. Home Care: 1) Rest today. You may resume your normal activities when you are feeling back to normal. It is best to remain with someone who can check on you for the next 24 hours to watch for another episode of fainting. 2) If you become light-headed or dizzy, lie down immediately or sit with your head between your knees. 3) Because we do not know the exact cause of your near fainting spell, it is possible for another spell to occur without warning. Therefore, do not drive a car or operate dangerous equipment, do not take a bath alone (use a shower instead) and do not swim alone until your doctor says that you are no longer in danger of having another fainting spell. Follow Up with your doctor as advised. Get Prompt Medical Attention if any of the following occur: -- Another fainting spell occurs, which is not explained by the common causes listed above -- Chest, arm, neck, jaw, back or abdominal pain -- Shortness of breath -- Severe headache or seizure -- Blood in vomit, stools (black or red color) -- Unexpected vaginal bleeding -- Palpitations (very rapid or very slow or irregular heart beat) -- Signs of stroke: Weakness of an arm or leg or one side of the face Difficulty with speech or vision Extreme drowsiness, confusion, dizziness or fainting How To Quit Smoking Smoking is one of the hardest habits to break. About half of all those who have ever smoked have been able to quit, and most of those (about 70%) who still smoke want to quit. Here are some of the best ways to stop smoking. Keep Trying: It takes most smokers about 8 tries before they are finally able to fully quit. So, the more often you try and fail, the better your chance of quitting the next time! So, don't give up! Go Cold [place]: Most ex-smokers quit cold turkey. Trying to cut back gradually doesn't seem to work as well, perhaps because it continues the smoking habit. Also, it is possible to fool yourself by inhaling more while smoking fewer cigarettes. This results in the same amount of nicotine in your body! Get Support: Support programs can make an important difference, especially for the heavy smoker. These groups offer lectures, methods to change your behavior and peer support. Call the free national Quitline for more information. 976-WZNJ-VTX (047-006-7208). Low-cost or free programs are offered by many hospitals, local chapters of the [place] [employer] (534-713-1397) and the [place] [employer] (951-227-9945). Support at home is important too. Non-smokers can help by offering praise and encouragement. If the smoker fails to quit, encourage them to try again! Dhgj-Bse-Pewdhrg Medicines: For those who can't quit on their own, Nicotine Replacement Therapy (NRT) may make quitting much easier. Certain aids such as the nicotine patch, gum and lozenge are available without a prescription. However, it is best to use these under the guidance of your doctor. The skin patch provides a steady supply of nicotine to the body. Nicotine gum and lozenge gives temporary bursts of low levels of nicotine. Both methods take the edge off the craving for cigarettes. WARNING: If you feel symptoms of nicotine overdose, such as nausea, vomiting, dizziness, weakness, or fast heartbeat, stop using these and see your doctor. Prescription Medicines: After evaluating your smoking patterns and prior attempts at quitting, your doctor may offer a prescription medicine such as bupropion (Zyban, Wellbutrin), varenicline (Chantix, Champix), a niocotine inhaler or nasal spray. Each has its unique advantage and side effects which your doctor can review with you. Health Benefits Of Quitting: The benefits of quitting start right away and keep improving the longer you go without smokin minutes: blood pressure and pulse return to normal 8 hours: oxygen levels return to normal 2 days: ability to smell and taste begins to improve as damaged nerves start to regrow 2-3 weeks: circulation and lung function improves 1-9 months: decreased cough, congestion and shortness of breath; less tired 1 year: risk of heart attack decreases by half 5 years: risk of lung cancer decreases by half; risk of stroke becomes the same as a non-smoker For information about how to quit smoking, visit the following links: National Cancer [place] , Clearing the Air, Quit Smoking Today - an online booklet. http://www.smokefree.gov/pubs/clearing_the_air.pdf Smokefree.gov http://smokefree.gov/ QuitNet http://www.quitnet.com/ You have been given the following additional information: Syncope, Unk Cause Smoking Cessation Rest. (Electronically signed by Andrew Vargas MD 10/25/2016 14:47)
--- NOTE | 2016-10-25 22:18 | ED MED RECONCILIATION SUMMARY ---
Patient: JHON FRAZIER Medication Reconciliation Report [facility] VisitID: [id number] [address] [place] [place] [address] 45y, F Registration Date/Time: 10/25/2016 Weight: 63.5 kg Height/Length: 64 in. BMI: 24.0 ALLERGIES: Sulfa Antibiotics The patient's Home Medications are listed below: THE FOLLOWING MEDICATIONS NEED TO BE RECONCILED: Asa 81mg po daily The source(s) of the original Home Medication information: Not obtained. The following Medications were given to the patient in the Emergency Department: None. The following Medications were prescribed to the patient: None.
== END 2016-10-25 14:50 | disposition home or self-care (01) ==
LOC: ED SRH 12:27
DX: R55 Syncope and collapse (principal); F15.10 Other stimulant abuse, uncomplicated; F12.10 Cannabis abuse, uncomplicated; Z79.82 Long term (current) use of aspirin; F17.200 Nicotine dependence, unspecified, uncomplicated; Z88.1 Allergy status to other antibiotic agents; Z88.2 Allergy status to sulfonamides
CPT/HCPCS: 90100; 90616; 91320; 91556; 92235; 92530; 92610; 92760; 92761; 92762; 92763; 92764; 92765; 92766; 92767; 93070; 93140; 94001; 94060; 95059

== ENCOUNTER 2017-01-19 02:24 | Emergency (ER) | payer OTHER ==
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
--- NOTE | 2017-01-19 04:40 | ED ORDER SUMMARY ---
..... Patient: JHON FRAZIER OrderSheet [facility] VisitID: [id number] [address] [place] [address] 46y, F Registration Date/Time: 01/19/2017 ORDER SHEET Weight: 63.5 kg (stated) Allergies: Sulfa Antibiotics GENERAL ORDERS: CT Head wo Cont Urgent (02:01/19/2017 Reyna Mathews) (Ack 4:13 Ashanti) (4:35 GUnger) CT Cervical Spine wo Cont Urgent (:01/19/2017 Reyna Mathews) (Ack 4:13 Ashanti) (4:35 GUnger) Chest 1V Urgent (:01/19/2017 Reyna Mathews) (Ack 4:13 Ashanti) (4:35 GUnger) CBC w Diff Urgent (:01/19/2017 Reyna Mathews) (Ack 4:13 Ashanti) (4:36 Pavelekvanesana) CMP Urgent (:01/19/2017 Reyna Mathews) (Ack 4:13 Ashanti) (4:36 Pavelekvanesana) UA-Culture if indicated Urgent (:01/19/2017 Reyna Mathews) (Ack 4:13 Ashanti) (4:36 [place]kvanesana) PT with INR Urgent (:01/19/2017 Reyna Mathews) (Ack 4:13 Ashanti) (4:36 [place]ave[place]esana) Urine Drug Screen Urgent (:01/19/2017 Reyna Mathews) (Ack 4:13 Ashatni) (4:37 Bevna) Urine Urgent (:01/19/2017 Reyna Mathews) (Ack 4:13 Ashanti) (4:37 Bevna) TSH Urgent (:01/19/2017 Reyna Mathews) (Ack 4:13 Ashanti) (4:37 Ashanti) Salicylate Level Urgent (:01/19/2017 Reyna Mathews) (Ack 4:13 Pavel) (4:37 Pavelekna) Ethyl Alcohol Urgent (02:59 01/19/2017 Reyna Mathews) (Ack 4:13 aPvel) (4:37 Pavelna) Acetaminophen Level Urgent (02:59 01/19/2017 Reyna Mathews) (Ack 4:13 Pavel) (4:37 Sandrana) EKG - ER Stat (03:09 01/19/2017 Reyna Mathews) (3:25 JVanessaivecaryn R.N.) MEDICATION ORDERS: IV FLUIDS: IV NS : initial bolus 1000 mL (1000 mL/hr), then none - for X1 (NOW) (02:58 01/19/2017 Reyna Mathews) (3:05 JQuivey R.N.) IV NS : initial bolus none -, then 125 mL/hr (NOW) (04:39 01/19/2017 Myra R.N. verbal order read back to Reyna Mathews) (4:40 JVanessaivecaryn R.N.) ORDER SHEET NOTES: [Electronically signed by Royal Cline Dr. (05:03 01/19/2017)] [Electronically signed by Serafin Mcgowan R.N. (05:17 01/19/2017)] [Electronically locked/signed by Serafin Mcgowan R.N. (05:17 01/19/2017)]
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
--- NOTE | 2017-01-19 04:40 | ED ORDER SUMMARY ---
..... Patient: JHON FRAZIER OrderSheet [facility] VisitID: [id number] [address] [place] [address] 46y, F Registration Date/Time: 01/19/2017 ORDER SHEET Weight: 63.5 kg (stated) Allergies: Sulfa Antibiotics GENERAL ORDERS: CT Head wo Cont Urgent (02:01/19/2017 Reyna Mathews) (Ack 4:13 Ashanti) (4:35 GUnger) CT Cervical Spine wo Cont Urgent (:01/19/2017 Reyna Mathews) (Ack 4:13 Ashanti) (4:35 GUnger) Chest 1V Urgent (:01/19/2017 Reyna Mathews) (Ack 4:13 Ashanti) (4:35 GUnger) CBC w Diff Urgent (:01/19/2017 Reyna Mathews) (Ack 4:13 Ashanti) (4:36 Pavelekvanesana) CMP Urgent (:01/19/2017 Reyna Mathews) (Ack 4:13 Ashanti) (4:36 Pavelekvanesana) UA-Culture if indicated Urgent (:01/19/2017 Reyna Mathews) (Ack 4:13 Ashanti) (4:36 Pavelekvanesana) PT with INR Urgent (:01/19/2017 Reyna Mathews) (Ack 4:13 Ashanti) (4:36 Pavelekvanesana) Urine Drug Screen Urgent (:01/19/2017 Reyna Mathews) (Ack 4:13 Ashanti) (4:37 Bevna) Urine Urgent (:01/19/2017 Reyna Mathews) (Ack 4:13 Ashanti) (4:37 Bevna) TSH Urgent (:01/19/2017 Reyna Mathews) (Ack 4:13 Ashanti) (4:37 Ashnati) Salicylate Level Urgent (:01/19/2017 Reyna Mathews) (Ack 4:13 Pavel) (4:37 Pavelekna) Ethyl Alcohol Urgent (02:59 01/19/2017 Reyna Mathews) (Ack 4:13 Pavel) (4:37 Pavelna) Acetaminophen Level Urgent (02:59 01/19/2017 Reyna Mathews) (Ack 4:13 Pavel) (4:37 Sandrana) EKG - ER Stat (03:09 01/19/2017 Reyna Mathews) (3:25 JVanessaivecaryn R.N.) MEDICATION ORDERS: IV FLUIDS: IV NS : initial bolus 1000 mL (1000 mL/hr), then none - for X1 (NOW) (02:58 01/19/2017 Reyna Mathews) (3:05 JQuivey R.N.) IV NS : initial bolus none -, then 125 mL/hr (NOW) (04:39 01/19/2017 Myra R.N. verbal order read back to Reyna Mathews) (4:40 JVanessaivecaryn R.N.) ORDER SHEET NOTES: [Electronically signed by Royal Cline Dr. (05:03 01/19/2017)] [Electronically signed by Serafin Mcgowan R.N. (05:17 01/19/2017)] [Electronically locked/signed by Serafin Mcgowan R.N. (05:17 01/19/2017)]
--- NOTE | 2017-01-19 05:17 | ED DISCHARGE INSTRUCTIONS ---
Patient: JHON FRAZIER General Instructions [facility] VisitID: [id number] [address] [place] [address] 46y, F Registration Date/Time: 01/19/2017 01/19/2017 04:45 BP: 124/65. HR: 76. RR: 14. O2 saturation: 100%. Pain level now: 8/10. Blood pressure normal. Oxygen saturation normal. acute peripontine scalp hematoma, acute anterior. (Electronically signed by Royal Cline Dr. 01/19/2017 5:03)
--- NOTE | 2017-01-19 05:17 | ED MED RECONCILIATION SUMMARY ---
Patient: FREDDIE JHON Naila Medication Reconciliation Report [facility] VisitID: [id number] [address] [place] [address] 46y, F Registration Date/Time: 01/19/2017 Weight: 63.5 kg Height/Length: 64 in. BMI: 24.0 ALLERGIES: Sulfa Antibiotics The patient's Home Medications are listed below: THE FOLLOWING MEDICATIONS NEED TO BE RECONCILED: Asa 81mg po daily The source(s) of the original Home Medication information: patient The following Medications were given to the patient in the Emergency Department: IV NS IV Fluids bolus 0, then 1000 mL/hr, administered: 01/19/2017 2:40:00 AM IV NS IV Fluids bolus 0, then 125 mL/hr, administered: 01/19/2017 4:38:00 AM The following Medications were prescribed to the patient: None.
--- NOTE | 2017-01-19 05:17 | ED DISCHARGE INSTRUCTIONS ---
Patient: JHON FRAZIER General Instructions [facility] VisitID: [id number] [address] [place] [address] 46y, F Registration Date/Time: 01/19/2017 01/19/2017 04:45 BP: 124/65. HR: 76. RR: 14. O2 saturation: 100%. Pain level now: 8/10. Blood pressure normal. Oxygen saturation normal. acute peripontine scalp hematoma, acute anterior. (Electronically signed by Royal Cline Dr. 01/19/2017 5:03)
--- NOTE | 2017-01-19 05:17 | ED MAR SUMMARY ---
..... Medication Administration Record [facility] [address] [place] [address] Patient: JHON FRAZIER Visit ID: [id number] 46y, F Weight: 63.5 kg Height/Length: 64 in BMI: 24 ALLERGIES: Sulfa Antibiotics Start 02:40 01/19/2017 Serafin Mcgowan RAlisonN., Stop 03:24 01/19/2017 Serafin Mcgowan R.N. Medication Administered: IV NS (SALINE), Dose: IV Fluids over 1 hour(s), Rate: 1000 mL/hr, Dispensed: 1000 mL bag, Site: #1 left AC. Medication Ordered: IV NS : initial bolus 1000 mL (1000 mL/hr), then none - for X1 (NOW). Start 04:38 01/19/2017 Serafin Mcgowan RAlisonN., Continued Upon Disposition 04:57 01/19/2017 Serafin Mcgowan, R.N. Medication Administered: IV NS (SALINE), Dose: IV Fluids over 8 hour(s), Rate: 125 mL/hr, Dispensed: 1000 mL bag, Site: #1 left AC. Medication Ordered: IV NS : initial bolus none -, then 125 mL/hr (NOW).
--- NOTE | 2017-01-19 05:17 | ED MED RECONCILIATION SUMMARY ---
Patient: FREDDIE JHON Naila Medication Reconciliation Report [facility] VisitID: [id number] [address] [place] [address] 46y, F Registration Date/Time: 01/19/2017 Weight: 63.5 kg Height/Length: 64 in. BMI: 24.0 ALLERGIES: Sulfa Antibiotics The patient's Home Medications are listed below: THE FOLLOWING MEDICATIONS NEED TO BE RECONCILED: Asa 81mg po daily The source(s) of the original Home Medication information: patient The following Medications were given to the patient in the Emergency Department: IV NS IV Fluids bolus 0, then 1000 mL/hr, administered: 01/19/2017 2:40:00 AM IV NS IV Fluids bolus 0, then 125 mL/hr, administered: 01/19/2017 4:38:00 AM The following Medications were prescribed to the patient: None.
--- NOTE | 2017-01-19 05:17 | ED MAR SUMMARY ---
..... Medication Administration Record [facility] [address] [place] [address] Patient: JHON FRAZIER Visit ID: [id number] 46y, F Weight: 63.5 kg Height/Length: 64 in BMI: 24 ALLERGIES: Sulfa Antibiotics Start 02:40 01/19/2017 Serafin Mcgowan RAlisonN., Stop 03:24 01/19/2017 Serafin Mcgowan R.N. Medication Administered: IV NS (SALINE), Dose: IV Fluids over 1 hour(s), Rate: 1000 mL/hr, Dispensed: 1000 mL bag, Site: #1 left AC. Medication Ordered: IV NS : initial bolus 1000 mL (1000 mL/hr), then none - for X1 (NOW). Start 04:38 01/19/2017 Serafin Mcgowan RAlisonN., Continued Upon Disposition 04:57 01/19/2017 Serafin Mcgowan, R.N. Medication Administered: IV NS (SALINE), Dose: IV Fluids over 8 hour(s), Rate: 125 mL/hr, Dispensed: 1000 mL bag, Site: #1 left AC. Medication Ordered: IV NS : initial bolus none -, then 125 mL/hr (NOW).
--- NOTE | 2017-01-19 06:36 | DIAGNOSTIC IMAGING REPORT ---
PROCEDURE: XR CHEST 1 VIEW INDICATION: Found down. TECHNIQUE: Portable AP view (0415 hours). COMPARISON: None. FINDINGS: Allowing for overlying wires, electrodes, clothing artifact, lungs are clear. Heart and mediastinum are normal. Thorax is normal. IMPRESSION: 1. Negative chest.
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
== END 2017-01-19 05:36 | disposition short-term general hospital (02) ==
LOC: ED SRH 02:24
DX: S06.6X0A Traumatic subarachnoid hemorrhage without loss of consciousness, initial encounter (principal); S00.03XA Contusion of scalp, initial encounter; X58.XXXA Exposure to other specified factors, initial encounter; Y93.9 Activity, unspecified; Y92.410 Unspecified street and highway as the place of occurrence of the external cause; Y99.9 Unspecified external cause status; F19.10 Other psychoactive substance abuse, uncomplicated; F17.210 Nicotine dependence, cigarettes, uncomplicated; F12.10 Cannabis abuse, uncomplicated; Z88.2 Allergy status to sulfonamides; I45.10 Unspecified right bundle-branch block
CPT/HCPCS: 81460; 90004; 90100; 92010; 92760; 92761; 92762; 92763; 92764; 92765; 92766; 92767; 92780; 93070; 93140; 94060; 95059; 97000